=== PATIENT | male | born 1955 | race Caucasian/White ===

== ENCOUNTER 2018-08-17 11:35 | Emergency (ER) | payer OTHER ==
[~2018-08-17] VITALS: Ht 180.3 cm; Wt 99.8 kg
[~2018-08-17 11:35] MED LIST: ACET325 PO; AMOCLA875 PO; ASPI325 PO; DEXA4 PO; HYDACE10B PO; HYDACE5 PO; NAPR550 PO; OXYACE5T PO
== END 2018-08-17 13:05 | disposition home or self-care (01) ==
LOC: ER 11:35
DX: M25.531 Pain in right wrist (principal); W01.198A Fall on same level from slipping, tripping and stumbling with subsequent striking against other object, initial encounter; F17.200 Nicotine dependence, unspecified, uncomplicated
CPT/HCPCS: 29125; 73110; 99283-25

== ENCOUNTER 2019-06-07 15:26 | Emergency (ER) | payer SELFPAY ==
[~2019-06-07] VITALS: Ht 180.3 cm; Wt 97.5 kg
[2019-06-07] MEDS ORDERED: Norco 5-325 Ta1 EACH PO (17:15)
== END 2019-06-07 17:45 | disposition home or self-care (01) ==
LOC: ER 15:26
DX: S22.32XD Fracture of one rib, left side, subsequent encounter for fracture with routine healing (principal); F17.210 Nicotine dependence, cigarettes, uncomplicated; V89.2XXD Person injured in unspecified motor-vehicle accident, traffic, subsequent encounter
CPT/HCPCS: 71101; 99283-25

== ENCOUNTER 2019-11-12 15:03 | Emergency (ER) | payer SELFPAY ==
[~2019-11-12] VITALS: Ht 180.3 cm; Wt 95.2 kg
[~2019-11-12 15:03] MED LIST changes: +Norco 5-325 Ta1 EACH PO
== END 2019-11-12 15:53 | disposition home or self-care (01) ==
LOC: ER 15:03
DX: L02.212 Cutaneous abscess of back [any part, except buttock and flank] (principal); F17.210 Nicotine dependence, cigarettes, uncomplicated
CPT/HCPCS: 10060; 99282-25